=== PATIENT | male | born 1990 | race Caucasian/White ===

== ENCOUNTER 2017-03-11 03:11 | Emergency (ER) | payer SELFPAY ==
[~2017-03-11] VITALS: Ht 182.9 cm; Wt 86.4 kg
[2017-03-11] MEDS ORDERED: LORA2TAB2 PO (03:17)
[2017-03-11] MEDS ORDERED: GABA-529 PO (03:17)
[2017-03-11] MEDS ORDERED: MORPHINE SULFATE 4 MG/ML SYRINGE IM ONE (05:30)
[2017-03-11] MEDS ORDERED: ONDANSETRON HCL 4 MG/2 ML VIAL IM ONE (05:30)
[2017-03-11 06:06] VITALS: BP 130/84
== END 2017-03-11 06:07 | disposition home or self-care (01) ==
LOC: EMS 03:12
DX: S52.201A Unspecified fracture of shaft of right ulna, initial encounter for closed fracture (principal); S63.501A Unspecified sprain of right wrist, initial encounter; F17.210 Nicotine dependence, cigarettes, uncomplicated; W20.8XXA Other cause of strike by thrown, projected or falling object, initial encounter; Y93.89 Activity, other specified; Y92.89 Other specified places as the place of occurrence of the external cause; Y99.8 Other external cause status
CPT/HCPCS: 29125; 73090; 73110; 96372; 99284; 99406; J2270; J2405

== ENCOUNTER 2017-03-16 12:15 | Emergency (ER) | payer MEDICAID ==
[~2017-03-16] VITALS: Ht 182.9 cm; Wt 86.0 kg
[~2017-03-16 12:15] MED LIST: GABA-529 PO; LORA2TAB2 PO
[2017-03-16] MEDS ORDERED: MORPHINE SULFATE 10 MG/ML SYRINGE IM ONE (13:15)
[2017-03-16 14:30] VITALS: BP 127/65
== END 2017-03-16 15:04 | disposition home or self-care (01) ==
LOC: EMS 12:17
DX: S52.201A Unspecified fracture of shaft of right ulna, initial encounter for closed fracture (principal); G25.81 Restless legs syndrome; F43.10 Post-traumatic stress disorder, unspecified; F17.210 Nicotine dependence, cigarettes, uncomplicated; W18.30XA Fall on same level, unspecified, initial encounter; Y93.89 Activity, other specified; Y92.89 Other specified places as the place of occurrence of the external cause; Y99.8 Other external cause status
CPT/HCPCS: 29105; 96372; 99283; 99406; J2270

== ENCOUNTER 2017-07-02 08:17 | Emergency (ER) | payer MEDICAID ==
[~2017-07-02] VITALS: Ht 182.9 cm; Wt 86.4 kg
[2017-07-02 09:47] VITALS: BP 130/72
[2017-07-02] MEDS ORDERED: IBUPROFEN 800 MG TABLET PO ONE (10:45)
[2017-07-02] MEDS ORDERED: PERTUSS(ACELL),DIPH,TET VAC/PF 0.5 ML VIAL IM ONE (10:45)
== END 2017-07-02 11:16 | disposition home or self-care (01) ==
LOC: EMS 08:19
DX: L03.114 Cellulitis of left upper limb (principal); H60.11 Cellulitis of right external ear; L03.116 Cellulitis of left lower limb; F17.210 Nicotine dependence, cigarettes, uncomplicated
CPT/HCPCS: 90471; 90715; 99283